=== PATIENT | female | born 1990 | race Hispanic/Latino ===

== ENCOUNTER 2018-09-22 21:36 | Emergency (ER) | payer BC ==
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
[2018-09-22 22:20] VITALS: BP 128/78; PULSE 83; RESP 17; TEMP 97.8; O2SAT 99
== END 2018-09-22 22:19 | disposition home or self-care (01) ==
LOC: H.ER 21:36
DX: F10.10 Alcohol abuse, uncomplicated (principal)